=== PATIENT | female | born 1980 | race Two or more races ===

== ENCOUNTER 2019-09-25 09:16 | Emergency (ER) | payer OTHER ==
--- NOTE | 2019-09-25 09:55 | TELE ---
HPI Do you have fever,cough or shortness of breath?: Yes - General Reason For Visit: COVID 19 TESTING Time Seen by Provider: 09/25/19 09:51 History Source: Patient Exam Limitations: Clinical Condition - History of Present Illness Timing/Duration: unsure 09/25/19 09:52 Patient with with no significant past medical history present to [facility] urgent care for COVID testing for travel. Patient reports she is traveling with her children to [facility] and is required to have a COVID test for travel. Denies any symptoms. Denies shortness of breath, fever, cough. Review of Systems - Review of Systems Able to Perform ROS?: Yes Limited Amharic proficient: No Constitutional: No: Chills, Fever, Malaise HEENTM: No: Symptoms Reported, See HPI, Eye Pain, Blurred Vision, Tearing, Recent change in vision, Double Vision, Cataracts, Ear Pain, Ocular Prothesis, Ear Discharge, Nose Pain, Nose Congestion, Tinnitus, Nose Bleeding, Hearing Loss, Throat Pain, Throat Swelling, Mouth Pain, Dental Problems, Difficulty Swallowing, Mouth Swelling, Other Respiratory: No: Symptoms reported, See HPI, Cough, Orthopnea, Shortness of Breath, SOB with Exertion, SOB at Rest, Stridor, Wheezing, Productive cough, Hemoptysis, Other Cardiac (ROS): No: Symptoms Reported, See HPI, Chest Pain, Edema, Irregular Heart Rate, Lightheadedness, Palpitations, Syncope, Chest Tightness, Other ABD/GI: No: Symptoms Reported, Nausea, Vomiting All Other Systems: Reviewed and Negative *Physical Exam - Physical Exam General Appearance: Yes: Nourished, Appropriately Dressed. No: Apparent Distress HEENT: positive: Normal ENT Inspection Respiratory/Chest: negative: Respiratory Distress, Accessory Muscle Use Musculoskeletal: positive: Normal Inspection Extremity: positive: Normal Inspection, Normal Range of Motion Integumentary: positive: Normal Color Neurologic: positive: Fully Oriented, Alert, Normal Mood/Affect, Normal Response - Medical Decision Making 09/25/19 09:53 Patient with with no significant past medical history present to [facility] urgent care for COVID testing for travel. Patient reports she is traveling with her children to [facility] and is required to have a COVID test for travel. Denies any symptoms. Denies shortness of breath, fever, cough. Clinical exam with being able to examine virtually is normal. Patient in no acute distress. Cover test ordered. Self quarantine instructions discussed with patient if symptomatic. Patient stable for discharge Discharge Diagnosis at time of Disposition: Encounter by telehealth for suspected COVID-19 - Referrals - Patient Instructions - Discharge Disposition: HOME Condition at time of Disposition: Stable
== END 2019-09-25 10:05 | disposition home or self-care (01) ==
LOC: JVIRT 09:16
DX: Z11.59 Encounter for screening for other viral diseases (principal)
CPT/HCPCS: Q3014-GT; U0003

== ENCOUNTER 2019-10-04 11:25 | Emergency (ER) | payer OTHER ==
--- NOTE | 2019-10-04 11:50 | TELE ---
HPI Do you have fever,cough or shortness of breath?: Yes - General Reason For Visit: COVID 19 TEST History Source: Patient - History of Present Illness Associated Symptoms: denies: cough, fever/chills, shortness of breath Review of Systems - Review of Systems Constitutional: No: Chills, Fever Respiratory: No: Cough, Shortness of Breath Cardiac (ROS): No: Chest Pain *Physical Exam - Physical Exam HEENT: positive: Normal Voice - Medical Decision Making 10/04/19 11:48 39 yo F, no sig hx, calling for covid swab as recent flight cancelled and will need new test within 72 hrs of new flight. No sxs. Also needs retesting for both her children. of note, recent swabs neg on pt and family as per records Discharge Diagnosis at time of Disposition: Encounter by telehealth for suspected COVID-19 - Referrals - Patient Instructions - Discharge Disposition: HOME
== END 2019-10-04 11:55 | disposition home or self-care (01) ==
LOC: JVIRT 11:25
DX: Z11.59 Encounter for screening for other viral diseases (principal)
CPT/HCPCS: Q3014-GT; U0003